=== PATIENT | female | born 1955 | race Caucasian/White ===

== ENCOUNTER 2017-01-14 17:55 | Emergency (ER) | payer OTHER ==
[~2017-01-14] VITALS: Ht 165.1 cm; Wt 104.0 kg
[~2017-01-14 17:55] MED LIST: FIORICET,ESG1 TABLET PO
[2017-01-14 18:25] LABS: HEMATOCRIT 39.4 % (36.0-46.0); MCH 30.2 PG (29.0-34.0); MCHC 33.5 G/DL (30.0-36.0); MCV 90.2 FL (83-99); MEAN PLAT.VOLUME 9.5 uM^3 (9.5-12.4); PLATELET COUNT 192 K/uL (156-360); RBC DIS.WIDTH-CV 12.3 % (11.8-14.6); RBC DIS.WIDTH-SD 39.7 % (39-53); RED BLOOD COUNT 4.37 M/uL (3.80-5.20); WHITE BLOOD COUNT 7.8 K/uL (4.1-10.2)
[2017-01-14 18:34] LABS: CHLORIDE 106 mEq/L (99-109); SODIUM 138 mEq/L (136-147)
[2017-01-14 18:35] LABS: GLUCOSE 191 mg/dL (70-99)
[2017-01-14 18:37] LABS: ANION GAP 9 MEQ/L (2-14)
[2017-01-14 18:39] LABS: GFR ESTIMATE (CALCULATED) > 59 mL/min/
[2017-01-14 18:40] LABS: UREA NITROGEN (BUN) 14 mg/dL (9-23)
[2017-01-14] MEDS ORDERED: BACTRIM,SEPT1 TABLET PO (20:18)
[2017-01-14] MEDS ORDERED: KEFLEX500 MG PO (20:40)
[2017-01-14 22:09] VITALS: BP 116/72
== END 2017-01-14 22:14 | disposition home or self-care (01) ==
LOC: EME 17:55
PROC: 0H9HXZZ Drainage of Right Upper Leg Skin, External Approach (ICD-10-PCS; principal; 2017-01-14)
DX: L03.115 Cellulitis of right lower limb (principal)
CPT/HCPCS: 80048; 85027; 87070; 87075; 87077; 87147; 87186; 87205; 99281; 99284; J0696

== ENCOUNTER → 2017-05-29 | Outpatient (CLI) | payer OTHER ==
[~2017-05-29] MED LIST changes: +BACTRIM,SEPT1 TABLET PO; +KEFLEX500 MG PO
== END | disposition home or self-care (01) ==
LOC: AMB 08:15
DX: L72.3 Sebaceous cyst (principal)